=== PATIENT | male | born 1985 | race Caucasian/White ===

== ENCOUNTER 2017-01-03 00:17 | Emergency (ER) | payer OTHER ==
[2017-01-03 00:20] VITALS: BP 141/73; PULSE 115; RESP 18; O2SAT 94
--- NOTE | 2017-01-03 00:26 | ED.REPORT ---
HPI-General Illness Date of Service Jan 03, 2017 ED Provider: Renzo Fraire MD Patient is an intoxicated 31 year old male who presents to the ED via EMS with blunt head trauma after fell over while intoxicated and struck a table. EMS reports that the patient was at home drinking with friends, when he stumbled and fell. There was possible broken glass at the scene. The patient presents with a laceration to his forehead and dried blood on his face. Patient became aggressive and combative towards EMS and was given 250mg Ketamine. He is sedated and snoring on arrival to the ED, unable to provide any additional history. C-collar placed on arrival to the ED. Nursing Notes Stated Complaint: ETOH, FOREHEAD LACERATION Chief Complaint: Head, Face, Neck Trauma Nursing Notes Reviewed: Yes Allergies: Coded Allergies: No Known Allergies (Unverified , 01/03/17) General Time Seen by MD: 00:25 Chief Complaint Other (head trauma and laceration) Hx Obtained From: EMS Unable to Obtain Hx: Intoxicated Arrived By: Ambulance Sudden in Onset?: No Onset Occurred: Just prior to arrival Location: : Head Quality: Painful Recent Healthcare: No recent doctor visit, No recent hospitalization Similar Sx Previous: No Past Medical History Smoking History Unknown if Ever Smoker Social History Alcohol Use: "Social" Other Social History: Local resident Ambulatory Status Independent Unable to Obtain History Past medical history, Past surgical history, Family history, Smoking history Unable to Obtain Due to: Intoxication Review of Systems Unable to Obtain ROS Intoxicated Physical Exam Vital Signs Vital Signs Date Time Temp Pulse Resp B/P Pulse Ox O2 Delivery O2 Flow Rate FiO2 01/03/17 06:57 36.9 104 16 119/73 97 Room Air 01/03/17 04:50 12 136/42 97 Room Air 01/03/17 00:20 36.5 115 18 141/73 94 Room Air Initial VS: Reviewed Abdomen / GI: Soft, Non-tender Skin: Warm, Dry, No cyanosis Alertness: Positive: Sedated, Sleeping but arousable Behavior: Positive: Appears intoxicated Appearance / Presentation: Positive: Intoxicated, Obese Head / Eyes: Normocephalic, PERRL Trauma - General: Positive: Laceration Right forehead: 5cm V-shaped flap, which is dusky appearing. 8cm of cut edge, with 1.5cm of stripped skin around it. Underlying galea is intact. No foreign object. No other hematomas or injuries palpated. ENT: Airway patent, Mucous membranes moist Trauma - Neck Specific: Positive: Immobilized - C Collar Respiratory / Chest: Breath sounds NL, Breath sounds = bilat, No respiratory distress, No rales, No rhonchi, No wheezing snoring respirations Cardiovascular: Heart rate NL, Regular rhythm, Heart sounds NL Abdomen: Soft, Non-tender Upper Extremities Upper Extremity / MS: Full range of motion, No deformity, Neurologic intact, Vascular intact Lower Extremity / Pelvis / MS: Full range of motion, No deformity, Neurologic intact, Vascular intact Mental Status: Positive: Pharmacologically sedated Interpretation & Diagnostics Lab Results Interpretation Result Diagram: 01/03/17 0155 01/03/17 0155 Test 01/03/17 01:55 White Blood Count 6.1th/mm3 (3.8-10.1) Red Blood Count 4.32mil/mm3 (4.40-5.80) Hemoglobin 11.5g/dL (13.8-17.2) Hematocrit 36.2% (41.0-50.0) Mean Corpuscular Volume 83.8fL (81-100) Mean Corpuscular Hemoglobin 26.6pg (27.0-35.0) Mean Corpuscular Hemoglobin Concent 31.8% (32.0-37.0) Red Cell Distribution Width 14.0% (12.3-15.4) Platelet Count 411bil/L (150-400) Neutrophils (%) (Auto) 54.3% (40-74) Lymphocytes (%) (Auto) 36.4% (14-46) Monocytes (%) (Auto) 6.3% (4-12) Eosinophils (%) (Auto) 2.0% (0-5) Basophils (%) (Auto) 0.8% (0-3) Prothrombin Time 9.7sec (8.1-12.5) Prothromb Time International Ratio 0.91ratio Activated Partial Thromboplast Time 25.9sec (22.8-33.0) Sodium Level 142mEq/L (134-144) Potassium Level 4.3mEq/L (3.5-5.2) Chloride Level 105mEq/L (97-108) Carbon Dioxide Level 22mmol/L (18-29) Blood Urea Nitrogen 11mg/dL (6-20) Creatinine 0.75mg/dL (0.76-1.27) Estimat Glomerular Filtration Rate 129mL/min (>59) Glucose Level 106mg/dL (60-99) Calcium Level 8.4mg/dL (8.5-10.1) Magnesium Level 2.2mg/dL (1.6-2.6) Total Bilirubin < 0.2mg/dL (0.0-1.2) Aspartate Amino Transf (AST/SGOT) 34U/L (0-50) Alanine Aminotransferase (ALT/SGPT) 21U/L (0-44) Alkaline Phosphatase 85U/L (25-150) Total Protein 7.3g/dL (6.4-8.4) Albumin 4.3g/dL (3.4-5.0) Lipase 47U/L (13-60) Alcohol, Quantitative 305mg/dL (0-10) CT Head Interpretation CONCLUSION: Frontal scalp swelling. No evidence of acute intracranial injury. Radiologist: Faith Araya MD 01/03/2017 - 12:53:37 AM PST Study: Head CT no contrast Interpretation / Wet Read by: Interpret - Radiologist CT C-Spine Interpretation CONCLUSION: No evidence of fracture or subluxation. Straightening of the normal curve may be due to positioning or muscle spasm. Radiologist: Faith Araya MD 01/03/2017 - 1:18:56 AM PST Study type: CT no contrast Interpretation / Wet Read by: Interpret - Radiologist Procedures Laceration Management Laceration Management: Two lacerations present, first a long V flap laceration with total outside dimension of 8 cm with a 3 cm superior arm and a 5 cm inferior arm. There is also a transverse 2 cm laceration just medial to the tip of the flap. This was also repaired after standard cleanse and lavage. The transverse 2 cm wound was repaired with 5-0 nylon consisting of two horizontal mattress sutures and one simple suture. Time: 01:29 Procedure Performed by: ED physician Consent / Setup / Site Prep: No consent - emergent (patient is intoxicated) , Time-out performed, Hand hygiene observed, Stand sterile technique Location of Wound: right forehead - underlying galea intact Wound Length: 8 cm (V flap laceration right forehead) Local Anesthesia: Lidocaine 1% Wound Preparation: Shurclens, Normal saline Debridement: Extensive (clot), None Irrigation: Copious Foreign Body Explore / Removal: Explored for foreign body Repair Skin: Nylon (5-0) # Sutures - Skin: 10 Closure Layers: 1 Suture Technique: Simple (6x), Mattress (1x horizontal mattress to the tip of the flap, 1x along superior edge, 2x lower edge) Post-Procedure / Complications: Antibiotic oint applied, Dressing applied, No complications, Condition improved, Tolerated procedure well, Patient stable Re-Eval/Medical Decision Med Decision/Clinical Course 31-year-old presents grossly intoxicated with an alcohol level and probable fall. CT done while he was sedated was negative for intracranial injury or neck injury. A laceration on his face, actually two lacerations were repaired per standard protocol. He is discharged home to his after a period of observation here. He required sedation to keep him from pulling out his IV and injuring himself. He is discharged now in stable condition. Time of Eval: 01:27 Patient Status: Condition improved Re-Evaluation/Progress Note: C-collar removed. Patient awakes briefly to stimulation but then falls back asleep. Laceration repaired. Patient is still unable to anwser questions appropriately. Time of Eval: 02:19 Re-Evaluation/Progress Note: Patient's is now accompanied by his . Informed her of his injuries. She states that this has happened previously and that he becomes agitated when he is confused. The patient has a 3 month old baby at home and will return home until he is sober in the morning. Time of Eval: 06:23 Re-Evaluation/Progress Note: Patient's is here to take him home. Patient understands and agrees with the plan to be discharged home. Discharge instructions and follow-up discussed. All questions were addressed. Return to the ED warnings given. Counseled Regarding: Diagnosis, Need for follow-up, When/why to return to ED Discharge & Departure Primary Impression: Laceration of forehead Encounter type: initial encounter Qualified Code: S01.81XA - Laceration without foreign body of other part of head, initial encounter Additional Impressions: Blunt head injury Encounter type: initial encounter Qualified Code: S09.8XXA - Other specified injuries of head, initial encounter Alcohol intoxication Complication of substance-induced condition: uncomplicated Qualified Code: F10.120 - Alcohol abuse with intoxication, uncomplicated Fall involving table as cause of accidental injury Disposition: Home Discharge Condition All VS Reviewed: Yes Condition: Stable Patient Instructions: Alcohol Intoxication (ED), Laceration (ED), Minor Head Injury (ED), Suture Care (ED) Additional Instructions: Your drinking is causing you serious problems. You need to moderate or quit. Your sutures need removal on day six, which would be next Thursday. Return here for that. Meantime, apply bacitracin to the wound three times daily and keep it covered. Return here for repetitive vomiting or any other new symptoms of concern. Refer to head injury sheet for additional instructions. Scribe Attestation Portions of this note were transcribed by Abby Vega. I, Dr. Fraire personally performed the history, physical exam and medical decision-making; I reviewed and confirmed the accuracy of the information in the transcribed note. Signed by: Kavitha Nguyen, 01/03/2017 0626 Renzo Fraire MD Jan 03, 2017 00:25 Abby Vega Jan 03, 2017 00:37
[2017-01-03] MEDS ORDERED: 0.9% Sodium Chloride 1,000 ML IV ONE (01:18)
[2017-01-03] MEDS ORDERED: Haloperidol 5 mg/mL Inj ONE (01:42)
[2017-01-03] MEDS ORDERED: Haloperidol 5 mg/mL Inj IVPUSH ONE (02:00)
[2017-01-03] MEDS ORDERED: Ondansetron 2 mg/mL 2 mL Inj IVPUSH ONE (02:00)
[2017-01-03] MEDS ORDERED: Ondansetron 2 mg/mL 2 mL Inj ONE (02:00)
[2017-01-03 02:03] LABS: BASOPHILS % (AUTO) 0.8 % (0-3); MONOCYTES % (AUTO) 6.3 % (4-12); Mean Corpuscular Hemoglobin 26.6 pg (27.0-35.0); Mean Corpuscular Volume 83.8 fL (81-100); NEUTROPHILS % (AUTO) 54.3 % (40-74); Platelet Count 411 bil/L (150-400)
[2017-01-03 02:20] LABS: INR 0.91 ratio
[2017-01-03 02:32] LABS: Lipase 47 U/L (13-60); Magnesium 2.2 mg/dL (1.6-2.6)
[2017-01-03 04:50] VITALS: BP 136/42; RESP 12; O2SAT 97
[2017-01-03] MEDS ORDERED: TdaP Vaccine 0.5 mL Inj IM ONE (06:35)
[2017-01-03 06:57] VITALS: BP 119/73; PULSE 104; RESP 16; O2SAT 97
--- NOTE | 2017-01-03 08:10 | DRSVH ---
PROCEDURE: CT BRAIN WITHOUT CONTRAST ([id number]) INDICATIONS: fall, intoxicated TECHNIQUE: Noncontrast 4.5 mm thick angled axial sections acquired from the foramen magnum to the vertex, with c oronal reformats. COMPARISON: None. FINDINGS: Image quality: Excellent. CSF spaces: Basal cisterns are patent. No extra-axial fluid collections. Ventricles are normal in size and shape. Brain: No midline shift. No intracranial masses or hemorrhage. Hathaway-white matter interface is norm al. Skull and face: Calvarium and visualized facial bones are intact, without suspicious lesions. Right fronto-temporal scalp laceration and swelling noted. Sinuses: Visualized sinuses and mastoids are clear. IMPRESSION: No acute intracranial disease process. Dictated by: Rukhsana Gonzales MD, PhD on 01/03/2017 at 8:07 Approved by: Rukhsana Gonzales MD, PhD on 01/03/2017 at 8:08
--- NOTE | 2017-01-03 08:16 | DRSVH ---
PROCEDURE: CT CERVICAL SPINE WITHOUT CONTRAST ([id number]) INDICATIONS: fall, intoxicated TECHNIQUE: Noncontrast 3 mm thick sections acquired from the skull base to the T4 level. Sagittal and coronal r eformats were then constructed. For radiation dose reduction, the following was used: automated exp osure control, adjustment of mA and/or kV according to patient size. COMPARISON: None. FINDINGS: Image quality: Excellent. Bones: No fractures or dislocations. Visualized superior ribs are intact. Multilevel degenerative c hanges are noted. Soft tissues: Prevertebral soft tissues are normal in thickness. No paravertebral hematomas. No ap ical pneumothoraces. Bilateral palatine tonsil prominence noted; please correlate with clinical findi ngs. IMPRESSION: No fracture. No acute osseous lesion. If symptoms and/or clinical suspicion for patholog y persists, evaluation with MRI may be helpful for further assessment. Dictated by: Rukhsana Gonzales MD, PhD on 01/03/2017 at 8:09 Approved by: Rukhsana Gonzales MD, PhD on 01/03/2017 at 8:14
== END 2017-01-03 06:45 | disposition home or self-care (01) ==
LOC: EDBD 00:17 → SED 00:17
DX: S01.81XA Laceration without foreign body of other part of head, initial encounter (principal); W01.190A Fall on same level from slipping, tripping and stumbling with subsequent striking against furniture, initial encounter; Y92.009 Unspecified place in unspecified non-institutional (private) residence as the place of occurrence of the external cause; Y93.89 Activity, other specified; Y99.8 Other external cause status; F10.120 Alcohol abuse with intoxication, uncomplicated; Y90.8 Blood alcohol level of 240 mg/100 ml or more; Z23 Encounter for immunization
CPT/HCPCS: 12054; 36415; 70450; 72125; 80053; 81002; 83690; 83735; 85025; 85610; 85730; 90471; 90715; 96361; 96374; 96375; 99285; G0480; J1630; J2060; J2405; J7030